=== PATIENT | male | born 1945 | race Caucasian/White ===

== ENCOUNTER 2017-08-02 12:09 | Emergency (ER) | payer OTHER ==
[2017-08-02 12:19] VITALS: BP 157/82; BMI 34.7
[2017-08-02 13:41] LABS: BILIRUBIN,URINE NEGATIVE (NEGATIVE); BLOOD/HEMOGLOBIN,URINE 5+ (NEGATIVE); GLUCOSE, URINE NEGATIVE (NEGATIVE); KETONES,URINE NEGATIVE (NEGATIVE); LEUKOCYTE ESTERASE ,URINE 1+ (NEGATIVE); NITRITES,URINE NEGATIVE (NEGATIVE); PROTEIN,URINE 2+ (NEGATIVE); UROBILINOGEN,URINE NORMAL (NORMAL)
[2017-08-02] MEDS ORDERED: TORADOL 30 MG VIAL IVP ONE (13:45)
--- NOTE | 2017-08-02 13:45 | DR.MBACK ---
HPI - Time Seen Time seen: 13:40 - PCP Primary Care Physician: BERNADINE MEANS - Complaint Chief Complaint:: PT STATES ' I PASSED TWO SMALL STONES LAST WEEK AND I HAVE HAD PAIN IN MY LOWER RIGHT GROIN THAT COMES AND GOES".. - Source History Provided: Patient - Mode of Arrival Mode of Arrival: Ambulatory - Timing Onset of Chief Complaint: 07/26/17 - Location Back Pain Location: Right, Flank - Associated Signs and Symptoms Back Pain Symptoms: Nausea Numbness: None Weakness: None PMH - PMH Past Medical History: Yes Past Medical History Comment: HX RENAL STONES YEARS AGO, Past Surgical History: Yes Surgical History: Cholecystectomy Past Surgical History Comment: NECK, JANUARY [address] RD BACK, RIGHT SHOULDER, RIGHT ANKLE TIMES 6,, - Family History History of Family Medical Conditions: No - Social History Does patient currently use any type of tobacco product: No Have you used tobacco products in the last 12 months: No Type of Tobacco Use: None Does any household member use tobacco: No Alcohol Use: None Do you use any recreational Drugs:: No Lives With: Family Lives Where: Home - infectious screening In the last 2 months have you had wt loss of >10#?: NO Have you had fever, night sweats or hemotysis?: No Have you traveled outside the country in the last 6 months?: No Isolation: Standard ROS - Review of Systems Eyes: No Symptoms Reported ENTM: No Symptoms Reported Respiratoy: No Symptoms Reported Cardiovascular: No Symptoms Reported Gastrointestinal/Abdominal: No Symptoms Reported Genitourinary: No Symptoms Reported Neurological: No Symptoms Reported Musculoskeletal: Back (right flank) Integumentary: No Symptoms Reported Hematologic/Lymphatic: No Symptoms Reported Endocrine: No Symptoms Reported Psychiatric: No Symptoms Reported All Other Systems: Reviewed and Negative PE - Vital Signs Vitals: Temperature 97.7 F Pulse Rate 65 Respiratory Rate 20 Blood Pressure 157/82 O2 Sat by Pulse Oximetry 92 - General General Appearance: Alert, In No Apparent Distress - Head Head Exam: Normal Inspection, Atraumatic - Eyes Eye exam: Normal Appearance, PERRL, EOMI - ENT ENT Exam: Normal Exam - Chest Chest Inspection: Normal Inspection, Symmetric Chest Wall Rise - Respiratory Respiratory Exam: Normal Lung Sounds Bilat, Accessory Muscle Use Respiratory Exam: Bilateral Clear to Auscultation - Cardiovascular Cardiovascular Exam: Regular Rate, Normal Rhythm - Abdominal Exam Abdominal Exam: Normal Inspection Abdominal Tenderness: negative: RUQ, RLQ, LUQ, LLQ, Epigastrium, Suprapubic, Diffuse, Mild, Moderate, Severe, Other - Rectal Rectal Exam: Deferred - Genitourinary Exam: Male: Deferred Scrotal Exam: Normal: Bilateral - Extremities Extremities Exam: Normal Inspection, Full ROM - Back Back Exam: Normal Inspection, Tenderness (right flank) - Neurological Neurological Exam: Alert, Oriented X3, CN II-XII Intact - Psychiatric Psychiatric Exam: Normal Affect, Normal Mood - Skin Skin Exam: Warm, Dry, Intact ROR - Labs Reviewed Laboratory: Specimen Type Clean catch urine 08/02/17 13:26 Urine Color Yellow (YELLOW) 08/02/17 13:26 Urine Appearance Hazy (CLEAR) 08/02/17 13:26 Urine pH 5.0 (5.0 - 8.0) 08/02/17 13:26 Ur Specific [place] 1.020 (1.000-1.030) 08/02/17 13:26 Urine Protein 2+ (NEGATIVE) 08/02/17 13:26 Urine Glucose (UA) Negative (NEGATIVE) 08/02/17 13:26 Urine Ketones Negative (NEGATIVE) 08/02/17 13:26 Urine Occult Blood 5+ (NEGATIVE) 08/02/17 13:26 Urine Nitrite Negative (NEGATIVE) 08/02/17 13:26 Urine Bilirubin Negative (NEGATIVE) 08/02/17 13:26 Urine Urobilinogen Normal (NORMAL) 08/02/17 13:26 Ur Leukocyte Esterase 1+ (NEGATIVE) 08/02/17 13:26 Urine RBC 3-5 /HPF (NEGATIVE) 08/02/17 13:26 Urine WBC 0-2 /HPF (NEGATIVE) 08/02/17 13:26 Ur Squamous Epith Cells Negative /HPF (NEGATIVE) 08/02/17 13:26 Urine Bacteria Negative /HPF (NEGATIVE) 08/02/17 13:26 Ur Culture Indicated? No/not indicated 08/02/17 13:26 - XRAY XRAY Interpreted by: Radiologist (CT ABD/Pel: The visualized lung bases are clear. The liver and spleen and pancreas and adrenal glands are unremarkable. There is an irregular right mid ureteral 6.6mm calculus causing mild right hydronephrosis and hydroureter. There is no residual renal calculus in the left kidney is unremarkable. The appendix is normal. The gallbladder surgically absent. The prostate measures 6.65 cm trtansverse diameter. There is a 1 cm bladder calculus. There is sigmoid diverticulosis. There is no bowel distention or ascities or adenopathy.) - Diagnosis Discharge Problem: Right mid ureteral calculus, Bladder calculus, Sigmoid diverticulosis - Discharge Plan Condition: Stable - Follow ups/Referrals Follow ups/Referrals: Jorge Alberto George [Primary Care Provider] - 3 days - Instructions
[2017-08-02] MEDS ORDERED: DILAUDID INJ IVP ONE (13:46)
[2017-08-02 13:48] LABS: APPEARANCE,URINE HAZY (CLEAR); BACTERIA,URINE NEGATIVE /HPF (NEGATIVE); COLOR,URINE YELLOW (YELLOW); SQUAMOUS EPITHELIAL CELL,UR NEGATIVE /HPF (NEGATIVE)
[2017-08-02] MEDS ORDERED: NS 1000 ML 1,000 ML IV ONE (13:49)
[2017-08-02] MEDS ORDERED: NS 1000 ML 1,000 ML ONE (13:51)
[2017-08-02] MEDS ORDERED: TORADOL 30 MG VIAL ONE (13:51)
[2017-08-02] MEDS ORDERED: DILAUDID INJ ONE (13:52)
[2017-08-02] MEDS ORDERED: ZOFRAN INJ 4 MG VIAL ONE (14:16)
[2017-08-02] MEDS ORDERED: ZOFRAN INJ 4 MG VIAL IVP ONE (14:22)
--- NOTE | 2017-08-02 15:05 | CT ---
History: Right lower quadrant pain persistent after passing 2 kidney stones last week Study: CT of the abdomen and pelvis without contrast Comparison: None Findings: The visualized lung bases are clear. The liver and spleen and pancreas and adrenal glands a re unremarkable. There is an irregular right mid ureteral 6.6 mm calculus causing mild right hydronep hrosis and hydroureter. There is no residual renal calculus in the left kidney is unremarkable. The a ppendix is normal. The gallbladder surgically absent. The prostate measures 6.65 cm transverse diamet er. There is a 1 cm bladder calculus. There is sigmoid diverticulosis. There is no bowel distention o r ascites or adenopathy. Impression: 1. Right mid ureteral 6.6 mm calculus 2. 1 cm central bladder calculus with moderate enlargement of the prostate 3. Sigmoid diverticulosis Reported By:
[2017-08-02] MEDS ORDERED: ZOFRAN SYRUP 4 MG UDC PO ONE (16:28)
[2017-08-02] MEDS ORDERED: ZOFRAN TAB 4 MG ONE (16:31)
== END 2017-08-02 16:42 | disposition home or self-care (01) ==
LOC: ER 13:03
DX: N20.1 Calculus of ureter (principal); N21.0 Calculus in bladder; K57.30 Diverticulosis of large intestine without perforation or abscess without bleeding
CPT/HCPCS: 74176; 81001; 96365; 96374; 96375; 99282; 99283; A4222; S0181; J1885; J2405